=== PATIENT | female | born 1985 | race American Indian/Alaskan Native ===

== ENCOUNTER 2018-08-02 08:53 | Emergency (ER) | payer SELFPAY ==
--- NOTE | 2018-08-02 09:17 | Event Note ---
ED Screening Note ED Screening Note: VAG BLEED SINCE JUNE HX OF SAME PT HER SURGERY HX UTERINE POLYS/CYSTS HAD PROCEDURE 12-17 AND HAS BEEN FINE UNTIL NOW NO OB HERE IN AREA RX NONE PMH NONE PSH HERNIA This initial assessment/diagnostic orders/clinical plan/treatment(s) is/are subject to change based on patients health status, clinical progression and re- assessment by fellow clinical providers in the ED. Further treatment and workup at subsequent clinical providers discretion. Patient/guardian urged not to elope from the ED as their condition may be serious if not clinically assessed and managed. Initial orders include:
[2018-08-02 09:18] VITALS: BP 125/88
--- NOTE | 2018-08-02 09:32 | Emergency Department Report ---
ED General Adult HPI - General Chief complaint: Vaginal Bleeding Stated complaint: MENSTRUAL CYCLE Time Seen by Provider: 08/02/18 09:15 Source: patient Mode of arrival: Ambulatory Limitations: No Limitations - History of Present Illness Initial comments: Patient is 32 years old female with no significant past medical history. Patient presented to the ER complaining of vaginal bleeding for the last month. Patient stated that she has been passing clots. Patient stated that she had the same issue last year and she was seen by her process engineering technician in [place] and they did surgery on her ovaries and since then she denied any issue. Patient stated that she is having some slight dizziness and generalized weakness and she is afraid that she might be anemic. Patient denied any vaginal discharge, fever or chills. - Related Data Allergies Allergy/AdvReac Type Severity Reaction Status Date / Time No Known Allergies Allergy Unverified 08/02/18 09:18 ED Review of Systems ROS: Stated complaint: MENSTRUAL CYCLE Other details as noted in HPI Comment: All other systems reviewed and negative Constitutional: denies: chills, fever Respiratory: denies: cough Cardiovascular: denies: chest pain, palpitations Gastrointestinal: denies: abdominal pain, nausea Genitourinary: abnormal menses ED Past Medical Hx - Past Medical History Previous Medical History?: Yes - Surgical History Hx Breast Surgery: Yes (reduction) Additional Surgical History: polyps removed from uterus. hernia repair as a child - Social History Smoking Status: Never Smoker Substance Use Type: None ED Physical Exam - General Limitations: No Limitations General appearance: alert, in no apparent distress - Head Head exam: Present: atraumatic, normocephalic, normal inspection - Eye Eye exam: Present: normal appearance - ENT ENT exam: Present: normal exam, normal orophraynx, mucous membranes moist - Neck Neck exam: Present: normal inspection, full ROM. Absent: tenderness, meningismus, lymphadenopathy, thyromegaly - Respiratory Respiratory exam: Present: normal lung sounds bilaterally - Cardiovascular Cardiovascular Exam: Present: regular rate, normal rhythm, normal heart sounds - GI/Abdominal GI/Abdominal exam: Present: soft, normal bowel sounds. Absent: distended, tenderness, guarding, rebound, rigid, organomegaly, mass, bruit, pulsatile mass - Extremities Exam Extremities exam: Present: normal inspection, full ROM, normal capillary refill. Absent: tenderness, pedal edema, calf tenderness - Back Exam Back exam: Present: normal inspection, full ROM. Absent: CVA tenderness (R), CVA tenderness (L), muscle spasm, paraspinal tenderness, vertebral tenderness - Neurological Exam Neurological exam: Present: alert, oriented X3, CN II-XII intact, normal gait, r eflexes normal - Psychiatric Psychiatric exam: Present: normal mood - Skin Skin exam: Present: warm, intact, normal color ED Course Vital Signs 08/02/18 09:15 Temperature 98.5 F Pulse Rate 90 Respiratory 16 Rate Blood Pressure 125/88 O2 Sat by Pulse 98 Oximetry ED Medical Decision Making - Lab Data Result diagrams: 08/02/18 09:24 08/02/18 09:24 - Medical Decision Making Patient is 32 years old female with no significant past medical history. Patient presented to the ER complaining of vaginal bleeding for the last month. Patient stated that she has been passing clots. Patient stated that she had the same issue last year and she was seen by her process engineering technician in [place] and they did surgery on her ovaries and since then she denied any issue. Patient stated that she is having some slight dizziness and generalized weakness and she is afraid that she might be anemic. Patient denied any vaginal discharge, fever or chills. Patient remained stable. Stable vital signs. Labs reviewed that is unremarkable was a stable H&H. Patient given a prescription for Provera and follow-up with Dr. Malachi Yan for further evaluation and management. Patient also advised to return to the ER if her symptoms are not improved. Critical care attestation.: If time is entered above; I have spent that time in minutes in the direct care of this critically ill patient, excluding procedure time. ED Disposition Clinical Impression: Vaginal bleeding Disposition: DC-01 TO HOME OR SELFCARE Is pt being admited?: No Condition: Stable Instructions: Menorrhagia (ED) Referrals: MALACHI YAN MD [Staff Physician] - 3-5 Days
[2018-08-02 09:35] LABS: Hematocrit 37.7 % (30.3-42.9); Hemoglobin 12.7 gm/dl (10.1-14.3); Mean Corpuscular HGB Conc 34 % (30-34); Mean Corpuscular Volume 90 fl (79-97); Platelet Count 289 K/mm3 (140-440); Red Blood Count 4.17 M/mm3 (3.65-5.03); Red Cell Distribution Width 12.9 % (13.2-15.2)
[2018-08-02 09:49] LABS: BUN/Creatinine Ratio 13; Blood Urea Nitrogen 12 mg/dL (7-17); Calcium 8.8 mg/dL (8.4-10.2); Hemolysis Index 6
[2018-08-02 09:50] LABS: Bilirubin,Urine NEG (Negative); Blood,Urine NEG (Negative); Color,Urine Yellow (Yellow); HCG Qualitative,Urine Negative (Negative); Mucus,Urine FEW /HPF; Protein,Urine <15 mg/dL mg/dL (Negative); Urobilinogen,Urine < 2.0 mg/dL (<2.0); WBC,Urine < 1.0 /HPF (0.0-6.0)
[2018-08-02 09:58] LABS: INR 0.97 (0.87-1.13); Partial Thromboplastin Time 27.6 Sec. (24.2-36.6)
== END 2018-08-02 10:42 | disposition home or self-care (01) ==
LOC: ED 08:53
DX: N93.9 Abnormal uterine and vaginal bleeding, unspecified (principal); R42 Dizziness and giddiness
CPT/HCPCS: 36415; 80048; 81001; 81025; 84703; 85027; 85610; 85730; 99283

== ENCOUNTER 2019-10-31 15:37 | Emergency (ER) | payer OTHER ==
--- NOTE | 2019-10-31 20:00 | Emergency Department Report ---
Minor Respiratory - HPI Chief Complaint: Upper Respiratory Infection Stated Complaint: FLU LIKE SYM Time Seen by Provider: 10/31/19 19:56 Duration: 2 Days Severity: moderate Minor Respiratory: Yes Sore Throat, Yes Able to Tolerate Fluids, Yes Cough, No Rhinorrhea, No Hemoptysis, No Shortness of Breath, No Fever Other History: 33-year-old -Citizen Of [place] female presents to the emergency room for nasal congestion cough sore throat and sinus drainage with severe nasal congestion. ED Review of Systems ROS: Stated complaint: FLU LIKE SYM Other details as noted in HPI Comment: All other systems reviewed and negative ED Past Medical Hx - Surgical History Hx Breast Surgery: Yes (reduction) Additional Surgical History: polyps removed from uterus. hernia repair as a child - Social History Smoking Status: Never Smoker Substance Use Type: None - Medications Home Medications: Home Medications Medication Instructions Recorded Confirmed Last Taken Type medroxyPROGESTERone ACETATE 10 mg PO QDAY #10 tablet 08/02/18 Unknown Rx [Provera] Amoxicillin/K Clav Tab [Augmentin 1 tab PO Q12HR 10 Days #20 tab 10/31/19 Unknown Rx 875 mg] Cetirizine HCl [ZyrTEC 10mg cap] 10 mg PO QDAY #30 capsule 10/31/19 Unknown Rx Mometasone Furoate [Nasonex] 1 puff NS QDAY #1 spray.pump 10/31/19 Unknown Rx Minor Respiratory Exam - Exam General: Vital signs noted. No distress. Alert and acting appropriately. HEENT: Yes Moist Mucous Membranes, No Pharyngeal Erythema, No Pharyngeal Exudates, No Rhinorrhea, No Conjuctival Injection, No Frontal Tenderness, No Maxillary Tenderness Neck: Yes Supple, No Adenopathy Lungs: Yes Good Air Exchange, No Wheezes, No Ronchi, No Stridor, No Cough, No Labored Respirations, No Retractions, No Use of Accessory Muscles, No Other Abnormal Lung Sounds Heart: Yes Regular, No Murmur Abdomen: Yes Normal Bowel Sounds, No Tenderness, No Peritoneal Signs Neurologic: Alert and oriented, no deficits. Musculoskeletal: Unremarkable. Critical care attestation.: If time is entered above; I have spent that time in minutes in the direct care of this critically ill patient, excluding procedure time. ED Disposition Clinical Impression: Allergic rhinitis Qualifiers: Allergic rhinitis trigger: unspecified Allergic rhinitis seasonality: unspecified Qualified Code(s): J30.9 - Allergic rhinitis, unspecified Disposition: DC-01 TO HOME OR SELFCARE Is pt being admited?: No Does the pt Need Aspirin: No Condition: Stable Instructions: Allergic Rhinitis (ED) Additional Instructions: Complete antibiotics use medication as prescribed. Follow-up with your primary care provider. Prescriptions: Amoxicillin/K Clav Tab [Augmentin 875 mg] 1 tab PO Q12HR 10 Days #20 tab Mometasone Furoate [Nasonex] 1 puff NS QDAY #1 spray.pump Cetirizine HCl [ZyrTEC 10mg cap] 10 mg PO QDAY #30 capsule Referrals: PRIMARY CAREMD [Primary Care Provider] - 3-5 Days MARVIN PÉREZ MD [Staff Physician] - 3-5 Days
[2019-10-31 20:26] VITALS: BP 115/82
== END 2019-10-31 20:29 | disposition home or self-care (01) ==
LOC: ED 15:37
DX: J30.9 Allergic rhinitis, unspecified (principal); Z98.890 Other specified postprocedural states; Z79.2 Long term (current) use of antibiotics; Z79.899 Other long term (current) drug therapy
CPT/HCPCS: 99282

== ENCOUNTER 2020-08-01 01:31 | Emergency (ER) | payer SELFPAY ==
[2020-08-01 04:05] VITALS: BP 145/85
--- NOTE | 2020-08-01 04:08 | Emergency Department Report ---
ED Female HPI - General Chief complaint: Urogenital-Female Stated complaint: VAGINA PAIN Source: patient Mode of arrival: Ambulatory Limitations: No Limitations - History of Present Illness Initial comments: Patient is a nulliparous 34-year-old -[place] female with a history of PCOS who presents to the ED with complaint of acute onset vaginal irritation and pain after she inserted off label [id number] "antibiotic vaginal pearls" into the vagina 2 days ago. Patient states that she is not sure whether some of the pearls may have broken inside her vagina. Patient states that she has a history of HPV and wanted to be evaluated because she thought she may have have a flare of the same. Patient denies dysuria, urinary frequency and urgency, vaginal discharge, back pain, dyspareunia, chest pain or shortness of breath, fever, chills, nausea, vomiting, abdominal pain or diarrhea MD Complaint: other (vaginal irritation; suspects foreign body in the vagina) -: Sudden, hour(s) (12) Location: labia, other (vaginal vault) Radiation: non-radiating Severity: moderate Severity scale (0 -10): 3 Quality: burning Consistency: constant Improves with: none Worsens with: urination Are you Now?: No Associated Symptoms: denies other symptoms, vaginal bleeding. denies: vaginal discharge, abdominal pain, nausea/vomiting, fever/chills, headaches, loss of appetite, dysuria, hematuria, seizure, other - Related Data Sexually active: Yes : 0 Para: 0 A: 0 Previous Rx's Medication Instructions Recorded Last Taken Type medroxyPROGESTERone ACETATE 10 mg PO QDAY #10 tablet 08/02/18 Unknown Rx [Provera] Amoxicillin/K Clav Tab [Augmentin 1 tab PO Q12HR 10 Days #20 tab 10/31/19 Unknown Rx 875 mg] Cetirizine HCl [ZyrTEC 10mg cap] 10 mg PO QDAY #30 capsule 10/31/19 Unknown Rx Mometasone Furoate [Nasonex] 1 puff NS QDAY #1 spray.pump 10/31/19 Unknown Rx Allergies Allergy/AdvReac Type Severity Reaction Status Date / Time No Known Allergies Allergy Unverified 08/02/18 09:18 ED Review of Systems ROS: Stated complaint: VAGINA PAIN Other details as noted in HPI Constitutional: denies: chills, fever Eyes: denies: eye pain, eye discharge, vision change ENT: denies: ear pain, throat pain Respiratory: denies: cough, shortness of breath, wheezing Cardiovascular: denies: chest pain, palpitations Endocrine: no symptoms reported Gastrointestinal: denies: abdominal pain, nausea, diarrhea Genitourinary: other (Vaginal irritation and pain). denies: urgency, dysuria, frequency, hematuria, discharge Musculoskeletal: denies: back pain, joint swelling, arthralgia Skin: denies: rash, lesions Neurological: denies: headache, weakness, paresthesias Psychiatric: denies: anxiety, depression Hematological/Lymphatic: denies: easy bleeding, easy bruising ED Past Medical Hx - Past Medical History Previous Medical History?: No Additional medical history: hpv; PCOS - Surgical History Past Surgical History?: No Hx Breast Surgery: Yes (reduction) Additional Surgical History: polyps removed from uterus. hernia repair as a child. Breast reduction - Social History Smoking Status: Never Smoker Substance Use Type: None - Medications Home Medications: Home Medications Medication Instructions Recorded Confirmed Last Taken Type medroxyPROGESTERone ACETATE 10 mg PO QDAY #10 tablet 08/02/18 Unknown Rx [Provera] Amoxicillin/K Clav Tab [Augmentin 1 tab PO Q12HR 10 Days #20 tab 10/31/19 Unkn own Rx 875 mg] Cetirizine HCl [ZyrTEC 10mg cap] 10 mg PO QDAY #30 capsule 10/31/19 Unknown Rx Mometasone Furoate [Nasonex] 1 puff NS QDAY #1 spray.pump 10/31/19 Unknown Rx ED Physical Exam - General Limitations: No Limitations General appearance: alert, in no apparent distress - Head Head exam: Present: atraumatic, normocephalic, normal inspection - Eye Eye exam: Present: normal appearance, PERRL, EOMI Pupils: Present: normal accommodation - ENT ENT exam: Present: normal exam, normal orophraynx, mucous membranes moist, TM's normal bilaterally, normal external ear exam - Neck Neck exam: Present: normal inspection, full ROM - Respiratory Respiratory exam: Present: normal lung sounds bilaterally. Absent: respiratory distress, wheezes, rales, stridor, chest wall tenderness, accessory muscle use, decreased breath sounds, other - Cardiovascular Cardiovascular Exam: Present: regular rate, normal rhythm, normal heart sounds. Absent: systolic murmur, diastolic murmur, rubs, gallop - GI/Abdominal GI/Abdominal exam: Present: soft, normal bowel sounds. Absent: tenderness, guarding, rebound, hyperactive bowel sounds, hypoactive bowel sounds - External exam: Present: normal external exam Speculum exam: Present: normal speculum exam Bi-manual exam: Present: normal bi-manual exam, other (Female RN music engineer Ms. Brock present during the pelvic exam) - Extremities Exam Extremities exam: Present: normal inspection, full ROM, normal capillary refill - Back Exam Back exam: Present: normal inspection, full ROM. Absent: tenderness, CVA tenderness (R), CVA tenderness (L), muscle spasm, paraspinal tenderness, vertebral tenderness - Neurological Exam Neurological exam: Present: alert, oriented X3, CN II-XII intact, normal gait, reflexes normal - Psychiatric Psychiatric exam: Present: normal affect, normal mood, anxious - Skin Skin exam: Present: warm, dry, intact, normal color. Absent: rash ED Medical Decision Making - Medical Decision Making This is a nulliparous 34-year-old -[place] female with a history of PCOS who presents to the ED with complaint of acute onset vaginal irritation and pain after she inserted off label [id number] "antibiotic vaginal pearls" into the vagina 2 days ago. Patient states that she is not sure whether some of the pearls may have broken inside her vagina. Patient states that she has a history of HPV and wanted to be evaluated because she thought she may have have a flare of the same. In the ED, patient is alert and oriented x3 and is not in any distress. Pelvic exam is unremarkable with no sign of vaginal lesions, vaginal discharge or irritation. There is however mild vaginal bleeding from her current menstrual cycle. Patient was therefore discharged home and advised to avoid putting any foreign bodies into her vagina especially of level "medications". Patient was advised to follow-up with [employer] physician in 5 to 7 days for reevaluation or return to the ED immediately if symptoms get worse. - Differential Diagnosis Foreign body in the vagina; vaginal irritation; HPV; genital herpes Critical care attestation.: If time is entered above; I have spent that time in minutes in the direct care of this critically ill patient, excluding procedure time. ED Disposition Clinical Impression: Vaginal irritation Disposition: TO HOME OR SELFCARE Is pt being admited?: No Does the pt Need Aspirin: No Condition: Stable Instructions: Vaginitis, [id number] Additional Instructions: Follow-up with your [employer] physician in 5 to 7 days for reevaluation. Return to the ED immediately if symptoms get worse. Referrals: ANGELINA URIARTE MD [Staff Physician] - 3-5 Days Time of Disposition: 04:10 Print Language: ARMENIAN
== END 2020-08-01 04:35 | disposition home or self-care (01) ==
LOC: ED 01:31
DX: N76.89 Other specified inflammation of vagina and vulva (principal); Z98.890 Other specified postprocedural states; Z79.899 Other long term (current) drug therapy
CPT/HCPCS: 99283